=== PATIENT | male | born 1930 | race Caucasian/White ===

== ENCOUNTER 2017-02-07 20:18 | Emergency (ER) | payer MEDICARE, BC ==
--- NOTE | ~2017-02-07 | CT71 ---
[facility] A Service [facility] RADIOLOGY TEXT RESULTS PATIENT: CLARENCE BUSBY LOCATION: [facility] : 34 UNIT #: [id number] AGE: [address]: Doreen Noland MD SEX: M ORDER DR: [id number] [address] [place], [place] [address] [id number] MR#: [id number] Acc #: [id number] NAME: CLARENCE BUSBY. : 1930 SEX: M STUDY DATE/TIME: 02/07/2017 20:16 UNIT: [facility] ROOM: STUDY DESCRIPTION: CT Head Wo Contrast Attending Physician: Doreen Noland M.D. Ordering Physician: Doreen Noland M.D. Primary Care Physician: Lobito Mendoza M.D. MEDICAL IMAGING REPORT This report is preliminary unless electronic signature is present EXAM CT head INDICATIONS Fall and hit the head. On anticoagulation. Laceration on the top of the head. TECHNIQUE CT of the head without contrast. This CT exam was performed with one or more of the following radiation dose reduction techniques: Automatic exposure control, adjustment of mA and/or kV according to patient size, and iterative reconstruction. COMPARISON CT head dated 01/12/2013. FINDINGS There is no acute intracranial hemorrhage, mass lesion, or acute infarct. There is generalized global cerebral atrophy and chronic small vessel changes. 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 The ventricles and basilar cisterns are normal in size and configuration. No extraaxial collections. There is no acute osseous abnormalities. Visualized paranasal sinuses and mastoid air cells are clear. IMPRESSION 1. No acute intracranial findings. Atrophy and chronic small vessel changes. 2. Scalp hematoma overlying the vertex. [facility] A Service [facility] RADIOLOGY TEXT RESULTS PATIENT: CLARENCE BUSBY LOCATION: [facility] : 34 UNIT #: [id number] AGE: [address]: Doreen Noland MD SEX: M ORDER DR: Dictated by... Ron Park M.D. THIS IS AN ELECTRONICALLY VERIFIED REPORT Ron Park M.D. at 02/08/2017 3:05 PM RPMauricio/kristina TD: 02/08/2017 00:58 JOB #: [id number] MEDICAL IMAGING REPORT Page 1 of 1 COPY
[~2017-02-07 20:18] MED LIST: ALTACE PO; ASPIRIN PO; ATENOLOL PO; AZOR 10/40 MG T1 TAB PO; BYSTOLIC10 MG PO; CARDURA4 M1 PO; CENTRUM PO; CLONIDINE HCL0.1 MG PO; COUMADIN10 MG; DEMADEX10 MG PO; DICLOFENAC PO; EFFIENT10 MG PO; HYDRALAZINE HCL50 MG PO; IMDUR-ER30 MG PO; ISOSORBIDE DINI30 MG PO; LASIX PO; LEVEMIR100 UNITS/ SUBQ; LIPITOR PO; METFORMIN PO; MICRO-K PO; NIFEDICAL PO; NOVOLOG100 U/ML SUBQ; NOVOLOG100 UNITS/ SUBQ; PANTOPRAZOLE SO40 MG PO; PLAVIX PO; PLETAL100 MG PO; ZYRTEC PO; [UNRECOGNIZED DRUG - OTHER]
== END 2017-02-07 21:15 | disposition home or self-care (01) ==
LOC: CED 20:18
DX: S01.01XA Laceration without foreign body of scalp, initial encounter (principal); I48.91 Unspecified atrial fibrillation; D64.9 Anemia, unspecified; Z98.890 Other specified postprocedural states; Z88.5 Allergy status to narcotic agent; W18.30XA Fall on same level, unspecified, initial encounter; Y92.009 Unspecified place in unspecified non-institutional (private) residence as the place of occurrence of the external cause
CPT/HCPCS: 12001; 70450; 99284

== ENCOUNTER 2017-02-13 10:57 | Emergency (ER) | payer MEDICARE, BC | END 2017-02-13 11:14 | disposition home or self-care (01) | LOC: CFTX 10:57 | DX: S01.01XD Laceration without foreign body of scalp, subsequent encounter (principal); I48.91 Unspecified atrial fibrillation; Z88.5 Allergy status to narcotic agent; W45.8XXD Other foreign body or object entering through skin, subsequent encounter; Y92.9 Unspecified place or not applicable | CPT/HCPCS: 99281 ==